=== PATIENT | female | born 1990 | race Caucasian/White ===

== ENCOUNTER 2017-05-26 15:20 | Emergency (ER) | payer SELFPAY ==
[2017-05-26 15:51] VITALS: BP 145/97
--- NOTE | 2017-05-26 16:10 | ED Physician Documentation ---
History of Present Illness - Stated complaint Stated Complaint: MED REFILL - Chief complaint Chief Complaint: General - History obtained from History obtained from: Patient - History of Present Illness Timing: Today Pain level max: 0 Pain level now: 0 Improved by: nothing Worsened by: nothing - Additonal information Additional information: recently moved here. out of her requip. no PCP yet. Review of Systems : denies: Now EGA Skin: denies: Rash Musculoskeletal: denies: Back pain PD PAST MEDICAL HISTORY - Past Medical History Past Medical History: Yes Other Past Medical History: restless leg syndrome - Present Medications Home Medications: Ambulatory Orders Medication Instructions Recorded Confirmed Ropinirole HCl [Requip] 2 mg PO QPM #30 tablet 05/26/17 Ropinirole HCl [Ropinirole ER] 2 mg PO DAILY 05/26/17 05/26/17 - Allergies Allergies/Adverse Reactions: Allergies Allergy/AdvReac Type Severity Reaction Status Date / Time No Known Drug Allergies Allergy Verified 05/26/17 15:51 - Living Situation Living Arrangement: reports: At home - Social History Does the pt have substance abuse?: No - Family History Family history: reports: Non contributory PD ED PE NORMAL - Vitals Vital signs reviewed: Yes - General General: Alert and oriented X 3, No acute distress - HEENT HEENT: Moist mucous membranes - Derm Derm: Warm and dry - Neuro Neuro: Alert and oriented X 3 - Psych Psych: Normal mood, Normal affect Results - Vitals Vitals: Vital Signs - 24 hr 05/26/17 15:47 Temperature 36.1 C L Heart Rate 97 Respiratory 18 Rate Blood Pressure 145/97 H O2 Saturation 100 Oxygen O2 Source Room air PD MEDICAL DECISION MAKING - ED course Complexity details: considered differential, d/w patient ED course: Patient is out of her Requip. Will prescribe this for her until she can see her doctor. Patient counseled regarding signs and symptoms for which I believe and urgent re-evaluation would be necessary. Patient with good understanding of and agreement to plan and is comfortable going home at this time This document was made in part using voice recognition software. While efforts are made to proofread this document, sound alike and grammatical errors may occur. Departure - Departure Disposition: 01 Home, Self Care Clinical Impression: Restless leg Condition: Good Follow-Up: your,doctor in 1 week [Other] Prescriptions: Ropinirole HCl [Requip] 2 mg PO QPM #30 tablet Comments: you will need to obtain further medications from your doctor. Discharge Date/Time: 05/26/17 16:15
== END 2017-05-26 16:15 | disposition home or self-care (01) ==
LOC: ED 15:20
DX: G25.81 Restless legs syndrome (principal); Z76.0 Encounter for issue of repeat prescription
CPT/HCPCS: 99283

== ENCOUNTER 2017-06-18 09:58 | Emergency (ER) | payer MEDICAID ==
--- NOTE | 2017-06-18 12:15 | ED Physician Documentation ---
PD HPI URI - Stated complaint Stated Complaint: FLU LIKE SYMPTOM - Chief complaint Chief Complaint: Resp - History obtained from History obtained from: Patient - History of Present Illness Timing - onset: How many weeks ago (3-4, with worsening the past few days) Timing duration: Weeks Timing details: Gradual onset, Still present (worse the past 2-3 days) Review of Systems Constitutional: reports: Chills, Myalgias Nose: reports: Rhinorrhea / runny nose, Congestion, Sinus pressure / pain Throat: reports: Sore throat Respiratory: denies: Dyspnea, Cough Neurologic: reports: Generalized weakness. denies: Focal weakness, Numbness, Altered mental status, Headache, Head injury PD PAST MEDICAL HISTORY - Past Medical History Past Medical History: Yes Respiratory: Asthma - Past Surgical History Past Surgical History: No - Present Medications Home Medications: Ambulatory Orders Medication Instructions Recorded Confirmed Ropinirole HCl [Requip] 2 mg PO QPM #30 tablet 05/26/17 Albuterol Sulfate [Proair Hfa 06/18/17 Inhaler] Azithromycin [Zithromax] 250 mg PO DAILY #6 tablet 06/18/17 Benzonatate [Tessalon] 100 mg PO TID PRN #25 capsule 06/18/17 Dexamethasone [Decadron] 4 mg PO DAILY #5 tablet 06/18/17 - Allergies Allergies/Adverse Reactions: Allergies Allergy/AdvReac Type Severity Reaction Status Date / Time No Known Drug Allergies Allergy Verified 05/26/17 15:51 - Social History Does the pt smoke?: No Smoking Status: Never smoker Does the pt drink ETOH?: No Does the pt have substance abuse?: No - Immunizations Immunizations are current?: Yes PD ED PE NORMAL - Vitals Vital signs reviewed: Yes - General General: Alert and oriented X 3, No acute distress, Well developed/nourished - HEENT HEENT: Ears normal, Pharynx benign, Other (sinus tenderness to percussion. ) - Neck Neck: Supple, no meningeal sign, No adenopathy - Cardiac Cardiac: RRR, No murmur - Respiratory Respiratory: Clear bilaterally - Abdomen Abdomen: Soft, Non tender - Female Female : Deferred - Rectal Rectal: Deferred - Back Back: No CVA TTP - Derm Derm: Normal color, Warm and dry, No rash - Extremities Extremities: No tenderness to palpate, Normal ROM s pain Results - Vitals Vitals: Oxygen O2 Source Room air PD MEDICAL DECISION MAKING - ED course Complexity details: considered differential (URI symptoms for awhile and now sinus pressure/cough and exudative discharge down throat and out nose. Cough and wheezing. Sounds like bacterial transformation. ), d/w patient Departure - Departure Disposition: 01 Home, Self Care Clinical Impression: Bronchitis Sinusitis, acute Qualifiers: Sinusitis location: unspecified location Recurrence: non-recurrent Qualified Code(s): J01.90 - Acute sinusitis, unspecified Asthma Qualifiers: Asthma severity: mild Asthma persistence: intermittent Asthma complication type : uncomplicated Qualified Code(s): J45.20 - Mild intermittent asthma, uncomplicated Condition: Stable Record reviewed to determine appropriate education?: Yes Instructions: ED Upper Resp Infec Abx Tx Prescriptions: Azithromycin [Zithromax] 250 mg PO DAILY #6 tablet Benzonatate [Tessalon] 100 mg PO TID PRN #25 capsule PRN Reason: Cough Dexamethasone [Decadron] 4 mg PO DAILY #5 tablet Comments: Drink lots of fluids. Tylenol or ibuprofen if needed for fevers and pains. Continue your asthma medicines as usual. Add Decadron for inflammation of the airways and sinuses. Zithromax antibiotic for sinus and bronchitis infections. Recheck if not improved within the next few days. Add Tessalon if needed for cough. Forms: Activity restrictions Discharge Date/Time: 06/18/17 12:46
[2017-06-18 12:46] VITALS: BP 150/112
== END 2017-06-18 12:46 | disposition home or self-care (01) ==
LOC: ED 09:58
DX: J45.20 Mild intermittent asthma, uncomplicated (principal); J40 Bronchitis, not specified as acute or chronic; J01.90 Acute sinusitis, unspecified
CPT/HCPCS: 99283

== ENCOUNTER 2017-09-17 11:51 | Emergency (ER) | payer MEDICAID ==
[2017-09-17 12:08] VITALS: BP 135/80
--- NOTE | 2017-09-17 12:25 | ED Physician Documentation ---
PD HPI URI - Stated complaint Stated Complaint: COUGH/SINUS PX - Chief complaint Chief Complaint: Heent - History obtained from History obtained from: Patient - History of Present Illness Timing - onset: Other (Otherwise healthy 26-year-old woman with no possibility of has been sick for 4 days with sore throat, runny nose, nasal congestion, left ear pressure, and dry cough. She had a mild fever but it is now gone. There is no associated shortness of breath. Mostly she needs a note that says she can return to work at [employer].) Review of Systems Constitutional: denies: Fever, Chills, Fatigue Nose: reports: Rhinorrhea / runny nose, Congestion, Sinus pressure / pain Throat: reports: Sore throat Respiratory: reports: Cough PD PAST MEDICAL HISTORY - Past Medical History Cardiovascular: Hypertension Respiratory: Asthma Neuro: None Endocrine/Autoimmune: None GI: None : None HEENT: None Psych: None Musculoskeletal: None Derm: None - Past Surgical History Past Surgical History: No - Present Medications Home Medications: Ambulatory Orders Medication Instructions Recorded Confirmed Ropinirole HCl [Requip] 2 mg PO QPM #30 tablet 05/26/17 Albuterol Sulfate [Proair Hfa 06/18/17 Inhaler] Azithromycin [Zithromax] 250 mg PO DAILY #6 tablet 06/18/17 Benzonatate [Tessalon] 100 mg PO TID PRN #25 capsule 06/18/17 Dexamethasone [Decadron] 4 mg PO DAILY #5 tablet 06/18/17 Guaifenesin/Pseudoephedrne HCl 1 each PO BID PRN #20 tab.er.12h 09/17/17 [Mucinex D ER 600-60 mg Tablet] Mometasone Furoate [Nasonex] 1 spray NS BID #1 spray.pump 09/17/17 - Allergies Allergies/Adverse Reactions: Allergies Allergy/AdvReac Type Severity Reaction Status Date / Time No Known Drug Allergies Allergy Verified 09/17/17 12:08 - Social History Does the pt smoke?: No Smoking Status: Never smoker Does the pt drink ETOH?: Yes Does the pt have substance abuse?: No - Immunizations Immunizations are current?: Yes - POLST Patient has POLST: No PD ED PE NORMAL - Vitals Vital signs reviewed: Yes - General General: Alert and oriented X 3, No acute distress - HEENT HEENT: Other (Mildly tender maxillary sinuses, TMs are normal. Throat is slightly red with some tonsillar crypts but no exudate.) - Neck Neck: Supple, no meningeal sign, No bony TTP, No adenopathy - Respiratory Respiratory: No respiratory distress, Clear bilaterally - Abdomen Abdomen: Non tender - Derm Derm: No rash - Neuro Neuro: Alert and oriented X 3, Normal speech Results - Vitals Vitals: Vital Signs - 24 hr 09/17/17 11:55 Temperature 36.7 C Heart Rate 93 Respiratory 20 Rate Blood Pressure 135/80 H O2 Saturation 100 Oxygen O2 Source Room air Departure - Departure Disposition: Home, Self Care Clinical Impression: Viral URI Condition: Good Record reviewed to determine appropriate education?: Yes Instructions: ED Viral Syndrome Prescriptions: Guaifenesin/Pseudoephedrne HCl [Mucinex D ER 600-60 mg Tablet] 1 each PO BID PRN #20 tab.er.12h PRN Reason: congestion Mometasone Furoate [Nasonex] 1 spray NS BID #1 spray.pump Comments: Return if worse or if you run a fever, Or follow-up or return if you are sick for more than 2 weeks total were develop a "double sickening" as discussed. Your blood pressure was elevated today on check into the emergency department. This does not mean that you have hypertension, it is a common phenomenon to come to the emergency department and have elevated blood pressure. I recommend that you see your primary care physician within the week to have it rechecked when you are feeling better. Forms: Activity restrictions
== END 2017-09-17 12:28 | disposition home or self-care (01) ==
LOC: ED 11:51
DX: J06.9 Acute upper respiratory infection, unspecified (principal); J45.909 Unspecified asthma, uncomplicated; I10 Essential (primary) hypertension
CPT/HCPCS: 99283

== ENCOUNTER 2018-02-10 13:34 | Emergency (ER) | payer MEDICAID ==
--- NOTE | 2018-02-10 14:03 | ED Physician Documentation ---
PD HPI HEENT - Stated complaint Stated Complaint: TOOTH PX - Chief complaint Chief Complaint: Heent - History obtained from History obtained from: Patient - History of Present Illness Timing - onset: Yesterday Timing - duration: Days (1) Timing - details: Abrupt onset, Still present Location: Tooth (rigth upper molar. Tried to get to see dentist, but earliest appt was Friday.) Improves: Ice. No: Medication Worsens: Swalllowing Associated symptoms: No: Fever, Congestion, Swollen nodes, Facial swelling, Headache Recently seen: Not recently seen Review of Systems Constitutional: denies: Fever, Chills, Myalgias Nose: denies: Rhinorrhea / runny nose, Congestion Throat: denies: Sore throat PD PAST MEDICAL HISTORY - Past Medical History Cardiovascular: Hypertension Respiratory: Asthma Endocrine/Autoimmune: None GI: None : None HEENT: None Psych: None Musculoskeletal: None Derm: None - Past Surgical History Past Surgical History: No - Present Medications Home Medications: Ambulatory Orders Medication Instructions Recorded Confirmed Ropinirole HCl [Requip] 2 mg PO QPM #30 tablet 05/26/17 Albuterol Sulfate [Proair Hfa 06/18/17 Inhaler] Clindamycin HCl [Cleocin HCl] 300 mg PO TID #15 capsule 02/10/18 HYDROcod/ACETAM 5/325 [[place] 5/325] 1 tab PO Q6H PRN #12 tablet 02/10/18 Losartan [Cozaar] 50 mg PO DAILY 02/10/18 02/10/18 Naproxen 375 mg PO BID #20 tablet 02/10/18 - Allergies Allergies/Adverse Reactions: Allergies Allergy/AdvReac Type Severity Reaction Status Date / Time No Known Drug Allergies Allergy Verified 02/10/18 13:40 - Social History Does the pt smoke?: No Smoking Status: Never smoker Does the pt drink ETOH?: Yes Does the pt have substance abuse?: No - Immunizations Immunizations are current?: Yes - POLST Patient has POLST: No PD ED PE NORMAL - Vitals Vital signs reviewed: Yes - General General: Alert and oriented X 3, No acute distress, Well developed/nourished - HEENT HEENT: Pharynx benign. No: Dentition benign (tenderness with some swelling of buccal gingiva right upper 3rd molar. ) - Neck Neck: Supple, no meningeal sign, No adenopathy - Cardiac Cardiac: RRR, No murmur - Respiratory Respiratory: Clear bilaterally - Derm Derm: Normal color, Warm and dry, No rash Results - Vitals Vitals: Oxygen O2 Source Room air PD MEDICAL DECISION MAKING - ED course Complexity details: considered differential, d/w patient - Sepsis Event Vital Signs: Oxygen O2 Source Room air Departure - Departure Disposition: Home, Self Care Clinical Impression: Dental infection Condition: Stable Record reviewed to determine appropriate education?: Yes Instructions: ED Abscess Dental Follow-Up: Royer Dupont PA-C [Primary Care Provider] - Prescriptions: Clindamycin HCl [Cleocin HCl] 300 mg PO TID #15 capsule HYDROcod/ACETAM 5/325 [[place] 5/325] 1 tab PO Q6H PRN #12 tablet PRN Reason: Pain Naproxen 375 mg PO BID #20 tablet Comments: Rinse with antiseptic mouthwash a few times a day. Clindamycin antibiotic as directed and naproxen anti-inflammatory. Add Tylenol or hydrocodone if needed for pain. Follow-up with your dentist Friday as planned. Discharge Date/Time: 02/10/18 14:33
[2018-02-10] MEDS ORDERED: CLINDAMYCIN 150 MG CAPSULE PO STA (14:19)
[2018-02-10] MEDS ORDERED: NAPROXEN 250 MG TABLET PO STA (14:19)
[2018-02-10 14:42] VITALS: BP 144/100
== END 2018-02-10 14:33 | disposition home or self-care (01) ==
LOC: ED 13:34
DX: K04.7 Periapical abscess without sinus (principal); I10 Essential (primary) hypertension
CPT/HCPCS: 99283; A9270

== ENCOUNTER 2018-04-14 19:56 | Outpatient (CLI) | payer MEDICAID | END 2018-04-14 19:57 | disposition critical access hospital (66) | LOC: EMS 19:56 | PROVIDERS: ATTEND Surgery | DX: R21 Rash and other nonspecific skin eruption (principal) | CPT/HCPCS: A0425; A0427; A0999 ==

== ENCOUNTER 2018-04-14 20:03 | Emergency (ER) | payer MEDICAID ==
[2018-04-14] MEDS ORDERED: DEXAMETHASONE 10 MG/ML VIAL IVP STA (20:19)
--- NOTE | 2018-04-14 20:23 | ED Physician Documentation ---
History of Present Illness - Stated complaint Stated Complaint: RASH, POSS ALLERGIC RXN - Chief complaint Chief Complaint: Wound - History obtained from History obtained from: Patient - History of Present Illness Timing: Enter time (19:00), Today Pain level now: 0 Improved by: improved en route after medics administered IV benadryl - Additonal information Additional information: Patient presents by ambulance with complaint of generalized pruritic rash, sudden onset 7 PM tonight while eating. No apparent inciting event or factors. She has had allergic reactions in the past, but to bees tings. She usually has an EpiPen but did not have it available tonight. In addition to the rash, she also experienced mild dyspnea, and sensation of throat swelling. The rash has improved with IV Benadryl given by medics, and the dyspnea and throat swelling have resolved. Review of Systems Cardiac: denies: Chest pain / pressure Respiratory: reports: Dyspnea. denies: Cough, Wheezing Skin: reports: Rash PD PAST MEDICAL HISTORY - Past Medical History Cardiovascular: Hypertension Respiratory: Asthma Endocrine/Autoimmune: None GI: None : None HEENT: None Psych: None Musculoskeletal: None Derm: None - Past Surgical History Past Surgical History: No - Present Medications Home Medications: Ambulatory Orders Medication Instructions Recorded Confirmed Ropinirole HCl [Requip] 2 mg PO QPM #30 tablet 05/26/17 Albuterol Sulfate [Proair Hfa 06/18/17 Inhaler] Clindamycin HCl [Cleocin HCl] 300 mg PO TID #15 capsule 02/10/18 HYDROcod/ACETAM 5/325 [[place] 5/325] 1 tab PO Q6H PRN #12 tablet 02/10/18 Losartan [Cozaar] 50 mg PO DAILY 02/10/18 02/10/18 Naproxen 375 mg PO BID #20 tablet 02/10/18 - Allergies Allergies/Adverse Reactions: Allergies Allergy/AdvReac Type Severity Reaction Status Date / Time No Known Drug Allergies Allergy Verified 02/10/18 13:40 - Social History Does the pt smoke?: No Smoking Status: Never smoker Does the pt drink ETOH?: Yes Does the pt have substance abuse?: No - Immunizations Immunizations are current?: Yes - POLST Patient has POLST: No PD ED PE NORMAL - Vitals Vital signs reviewed: Yes - General General: Alert and oriented X 3, No acute distress, Well developed/nourished - HEENT HEENT: Moist mucous membranes, Other (no intraoral swelling, no lip or facial swelling) - Respiratory Respiratory: No respiratory distress, Clear bilaterally PD ED PE EXPANDED - Derm Derm: Other (mild patchy facial erythema without sharp margins) Results - Vitals Vitals: Vital Signs - 24 hr 04/14/18 04/14/18 04/14/18 20:04 21:43 21:52 Temperature 36.5 C Heart Rate 99 84 84 Respiratory 18 18 16 Rate Blood Pressure 128/110 H 113/78 132/82 H O2 Saturation 99 98 98 Oxygen O2 Source Room air PD MEDICAL DECISION MAKING - ED course Complexity details: considered differential, d/w patient Departure - Departure Disposition: 01 Home, Self Care Clinical Impression: Allergic reaction Condition: Good Instructions: ED Allergic Reaction General Other Discharge Date/Time: 04/14/18 21:53
[2018-04-14 21:53] VITALS: BP 132/82
== END 2018-04-14 21:53 | disposition home or self-care (01) ==
LOC: EDUNIT# → ED 20:03
DX: T78.40XA Allergy, unspecified, initial encounter (principal); X58.XXXA Exposure to other specified factors, initial encounter; I10 Essential (primary) hypertension
CPT/HCPCS: 96374; 99283

== ENCOUNTER 2018-05-06 15:16 | Outpatient (CLI) | payer MEDICAID | END 2018-05-06 23:59 | disposition home or self-care (01) | LOC: LAB.N 15:16 | PROVIDERS: ATTEND Physician Assistant Medical | DX: Z91.89 Other specified personal risk factors, not elsewhere classified (principal) | CPT/HCPCS: 36415; 86803; 87389 ==

== ENCOUNTER 2018-05-21 08:04 | Emergency (ER) | payer MEDICAID ==
[2018-05-21] MEDS ORDERED: ONDANSETRON 4 MG/2 ML VIAL IVP STA (09:09)
[2018-05-21] MEDS ORDERED: SODIUM CHLORIDE 0.9% 1,000 ML IV ONE (09:09)
[2018-05-21] MEDS ORDERED: MORPHINE 2 MG/ML CARPUJECT IVP STA (09:09)
--- NOTE | 2018-05-21 09:11 | ED Physician Documentation ---
History of Present Illness - Stated complaint Stated Complaint: SIDE PX - Chief complaint Chief Complaint: Abd Pain - Additonal information Additional information: h from pt 27 y/o f awoke approx 3 AM with vague suprapubic and periumbilical pain which has migrated to the RLQ + NVD s blood no dysuria vag bleed or vag dc no prior surgeries no bad food travel etc Review of Systems Constitutional: denies: Fever, Chills Cardiac: denies: Chest pain / pressure Respiratory: denies: Dyspnea GI: reports: Abdominal Pain, Nausea, Vomiting, Diarrhea : denies: Dysuria, Discharge, Vaginal bleeding Musculoskeletal: denies: Back pain PD PAST MEDICAL HISTORY - Past Medical History Cardiovascular: Hypertension Respiratory: Asthma Endocrine/Autoimmune: None GI: None : None HEENT: None Psych: None Musculoskeletal: None Derm: None - Past Surgical History Past Surgical History: No - Present Medications Home Medications: Ambulatory Orders Medication Instructions Recorded Confirmed Ropinirole HCl [Requip] 2 mg PO QPM #30 tablet 05/26/17 Albuterol Sulfate [Proair Hfa 06/18/17 Inhaler] Clindamycin HCl [Cleocin HCl] 300 mg PO TID #15 capsule 02/10/18 HYDROcod/ACETAM 5/325 [[place] 5/325] 1 tab PO Q6H PRN #12 tablet 02/10/18 Losartan [Cozaar] 50 mg PO DAILY 02/10/18 02/10/18 Naproxen 375 mg PO BID #20 tablet 02/10/18 Indomethacin [Indocin] 25 mg PO BIDWM PRN #20 capsule 05/21/18 Ondansetron Odt [Zofran] 4 mg TL Q6H PRN #10 tablet 05/21/18 - Allergies Allergies/Adverse Reactions: Allergies Allergy/AdvReac Type Severity Reaction Status Date / Time No Known Drug Allergies Allergy Verified 05/21/18 08:15 - Social History Does the pt smoke?: No Smoking Status: Never smoker Does the pt drink ETOH?: Yes Does the pt have substance abuse?: No - Immunizations Immunizations are current?: Yes - POLST Patient has POLST: No PD ED PE NORMAL - Vitals Vital signs reviewed: Yes - General General: Alert and oriented X 3 - Neck Neck: Supple, no meningeal sign - Cardiac Cardiac: RRR - Respiratory Respiratory: No respiratory distress, Clear bilaterally - Abdomen Abdomen: Soft, Non tender, Other (TTP RLQ with rebound) - Back Back: No CVA TTP - Derm Derm: Normal color - Neuro Neuro: Alert and oriented X 3 Results - Vitals Vitals: Vital Signs - 24 hr 05/21/18 08:12 Temperature 35.5 C L Heart Rate 83 Respiratory 16 Rate Blood Pressure 125/80 O2 Saturation 98 Oxygen O2 Source Room air - Labs Labs: Laboratory Tests 05/21/18 05/21/18 05/21/18 08:30 09:25 09:25 WBC 7.5 RBC 4.18 L Hgb 12.5 Hct 36.5 L MCV 87.4 MCH 30.0 MCHC 34.4 RDW 13.5 Plt Count 258 MPV 7.7 L Neut # (Auto) 5.2 Lymph # (Auto) 1.9 [place] # (Auto) 0.3 Eos # (Auto) 0.0 Baso # (Auto) 0.1 Absolute Nucleated RBC 0.00 Nucleated RBC % 0.0 Sodium 133 L Potassium 3.9 Chloride 102 Carbon Dioxide 24 Anion Gap 7.0 BUN 8 Creatinine 0.5 Estimated GFR (MDRD) 147 Glucose 95 Calcium 8.9 Total Bilirubin 0.3 AST 12 ALT 14 Alkaline Phosphatase 51 Total Protein 7.5 Albumin 3.8 Globulin 3.7 Albumin/Globulin Ratio 1.0 Lipase 21 L Urine Color YELLOW Urine Clarity CLEAR Urine pH 5.5 Ur Specific [place] >=1.030 H Urine Protein NEGATIVE Urine Glucose (UA) NEGATIVE Urine Ketones NEGATIVE Urine Occult Blood NEGATIVE Urine Nitrite NEGATIVE Urine Bilirubin NEGATIVE Urine Urobilinogen 0.2 (NORMAL) Ur Leukocyte Esterase NEGATIVE Ur Microscopic Review NOT INDICATED Urine Culture Comments NOT INDICATED Urine HCG, Qual NEGATIVE - Rads (name of study) CTAP Radiology: See rad report (no appendicitis but 3 cm phlegmon with stranding) PD MEDICAL DECISION MAKING - ED course ED course: no appy but phelgmon and stranding - will consult surgery d/w surgeon Dr Garcia 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 But you do have a 3 cm area of inflammation in the mesentery (the protective curtain of fat that protects your organs) This was discussed with our on air host surgeon and he advises you do not need surgery or antibiotics. Just close for serial exams and a repeat CT in a few weeks - please call the surgery office to schedule. Return to the ER if worse in the mean time - any fever, worsening pain, feeling faint etc Forms: Activity restrictions
[2018-05-21] MEDS ORDERED: IOVERSOL 320 100 ML VIAL IVP ONE ×3 (09:27→10:30)
[2018-05-21 09:51] LABS: BASOPHILS # (AUTO) 0.1 10^3/uL (0.0-0.1); BASOPHILS % (AUTO) 0.7 %; EOSINOPHILS % (AUTO) 0.5 %; HGB - HEMOGLOBIN 12.5 g/dL (12.0-16.0); LYMPHOCYTES # (AUTO) 1.9 10^3/uL (1.5-3.5); LYMPHOCYTES % (AUTO) 24.9 %; MEAN CORPUSCULAR HGB CONC 34.4 g/dL (32.0-36.0); MEAN CORPUSCULAR VOLUME 87.4 fL (81.0-99.0); MEAN PLATELET VOLUME 7.7 fL (7.9-10.8); MONOCYTES # (AUTO) 0.3 10^3/uL (0.0-1.0); MONOCYTES % (AUTO) 4.5 %; NEUTROPHILS # (AUTO) 5.2 10^3/uL (1.5-6.6); NEUTROPHILS % (AUTO) 69.4 %; PLT - PLATELET COUNT 258 10^3/uL (130-450); RED BLOOD COUNT 4.18 10^6/uL (4.20-5.40); RED CELL DISTRIBUTION WIDTH 13.5 % (12.0-15.0); WHITE BLOOD COUNT 7.5 x10^3/uL (4.8-10.8)
[2018-05-21 09:53] LABS: BILIRUBIN,URINE NEGATIVE (NEGATIVE); GLUCOSE, URINE (UA) NEGATIVE (NEGATIVE); KETONES,URINE (UA) NEGATIVE (NEGATIVE); LEUKOCYTE ESTERASE, URINE NEGATIVE (NEGATIVE); NITRITE,URINE NEGATIVE (NEGATIVE); OCCULT BLOOD,URINE NEGATIVE (NEGATIVE); PH,URINE 5.5 PH (5.0-7.5); PROTEIN,URINE NEGATIVE (NEGATIVE); UROBILINOGEN,URINE 0.2 (NORMAL) E.U./dL (NORMAL)
[2018-05-21 09:57] LABS: CLARITY,URINE CLEAR (CLEAR); HCG UR QUAL NEGATIVE
[2018-05-21 10:01] LABS: ALBUMIN 3.8 g/dL (3.2-5.5); BILIRUBIN,TOTAL 0.3 mg/dL (0.2-1.0); CALCIUM 8.9 mg/dL (8.5-10.3); CREATININE 0.5 mg/dL (0.4-1.0); TOTAL PROTEIN 7.5 g/dL (6.7-8.2)
--- NOTE | 2018-05-21 11:04 | CT Report ---
Reason: rlq pain concern appy Procedure Date: 05/21/2018 Accession Number: [id number] / [id number] Procedure: CT - Abdomen/Pelvis W/ CPT Code: FULL RESULT: EXAM: CT ABDOMEN AND PELVIS EXAM DATE: 05/21/2018 10:29 AM. CLINICAL HISTORY: Right lower quadrant pain, concern for appendicitis. COMPARISONS: None. TECHNIQUE: Routine helical CT imaging was performed through the abdomen and pelvis. IV contrast: OPTI 320 90 mL. Enteric contrast: No. Reconstructions: Coronal and sagittal. In accordance with CT protocol optimization, one or more of the following dose reduction techniques were utilized for this exam: automated exposure control, adjustment of mA and/or KV based on patient size, or use of iterative reconstructive technique. FINDINGS: Lung Bases: Unremarkable. Liver: Normal. No masses. Gallbladder/Bile Ducts: Unremarkable. Spleen: Normal. Pancreas: Normal. Adrenal Glands: Normal. Kidneys: Normal. No masses or hydronephrosis. Peritoneal Cavity/Bowel: There is focal fat stranding of the mesenteric root distally surrounding a masslike phlegmonous-appearing focus which measures 3.3 x 1.5 cm coronally on image 31 series 5, also seen on image 62 series 3 and image 41 series 6. There is diverticulosis without diverticulitis. No free fluid, free air or adenopathy. No masses. The appendix is well visualized and normal. Pelvic Organs: Normal. The bladder and visualized pelvic organs are within normal limits. Vasculature: No aneurysms or other significant abnormality. Bones: No significant abnormality. Other: None. IMPRESSION: No appendicitis. Nonspecific focal fat stranding surrounding 3.3 cm soft tissue density, possibly phlegmonous changes. The clinical significance is unclear. Would recommend one time follow-up imaging in 3 months following resolution of the acute episode to document absence of desmoplasia and any underlying etiology. [facility]
[2018-05-21 12:52] VITALS: BP 129/77
== END 2018-05-21 12:57 | disposition home or self-care (01) ==
LOC: ED 08:04
DX: L02.91 Cutaneous abscess, unspecified (principal); I10 Essential (primary) hypertension
CPT/HCPCS: 36415; 74177; 80053; 81003; 81025; 83690; 85025; 96361; 96374; 96375; 99283; 99284; Q9967; 81001; 87086

== ENCOUNTER 2020-03-17 08:43 | Emergency (ER) | payer MEDICAID ==
[2020-03-17 09:20] VITALS: BP 136/89
--- NOTE | 2020-03-17 09:36 | ED Physician Documentation ---
History of Present Illness - Stated complaint Stated Complaint: MED REFILL - Chief complaint Chief Complaint: General - History obtained from History obtained from: Patient - History of Present Illness Timing: Chronic, Other (For medication refill for her restless legs. She is new to the area tried to make an appointment with a local clinic and has an appointment for April. No other mechanism for refill at this time.) Review of Systems Constitutional: denies: Fever Nose: denies: Rhinorrhea / runny nose, Congestion Throat: denies: Sore throat Respiratory: denies: Cough GI: denies: Abdominal Pain, Vomiting, Diarrhea PD PAST MEDICAL HISTORY - Past Medical History Cardiovascular: Hypertension Respiratory: Asthma Neuro: Other (restless legs. ) Endocrine/Autoimmune: None GI: None : None HEENT: None Psych: None Musculoskeletal: None Derm: None - Past Surgical History Past Surgical History: No - Present Medications Home Medications: Ambulatory Orders Medication Instructions Recorded Confirmed Ropinirole HCl [Requip] 2 mg PO QPM #30 tablet 05/26/17 Albuterol Sulfate [Proair Hfa 06/18/17 Inhaler] Ropinirole HCl 2 mg PO QPM #45 tablet 03/17/20 SUMAtriptan succinate [Sumatriptan 25 mg PO 03/17/20 Succinate] - Allergies Allergies/Adverse Reactions: Allergies Allergy/AdvReac Type Severity Reaction Status Date / Time aspirin Allergy Unknown Verified 03/17/20 09:24 - Social History Does the pt smoke?: No Smoking Status: Never smoker Does the pt drink ETOH?: Yes Does the pt have substance abuse?: No - Immunizations Immunizations are current?: Yes - POLST Patient has POLST: No PD ED PE NORMAL - Vitals Vital signs reviewed: Yes - General General: Alert and oriented X 3, No acute distress, Well developed/nourished - Derm Derm: Normal color, Warm and dry - Neuro Neuro: Alert and oriented X 3, No motor deficit, Normal speech Results - Vitals Vitals: Vital Signs - 24 hr 03/17/20 09:13 Temperature 36.4 C L Heart Rate 77 Respiratory 16 Rate Blood Pressure 136/89 H O2 Saturation 98 Oxygen O2 Source Room air PD MEDICAL DECISION MAKING - ED course Complexity details: considered differential, d/w patient Departure - Departure Disposition: 01 Home, Self Care Clinical Impression: No mechanism for timely refill of medication, Restless leg Condition: Stable Record reviewed to determine appropriate education?: Yes Prescriptions: Ropinirole HCl 2 mg PO QPM #45 tablet Comments: Continue your ropinirole nightly for your restless legs. Stay well-hydrated. Follow-up with the clinic in April as scheduled. Return as needed. Discharge Date/Time: 03/17/20 09:50
== END 2020-03-17 09:50 | disposition home or self-care (01) ==
LOC: ED 08:43
DX: G25.81 Restless legs syndrome (principal); Z76.0 Encounter for issue of repeat prescription; I10 Essential (primary) hypertension
CPT/HCPCS: 99281

== ENCOUNTER 2020-06-04 09:06 | Emergency (ER) | payer MEDICAID ==
--- NOTE | 2020-06-04 10:51 | ED Physician Documentation ---
History of Present Illness - Stated complaint Stated Complaint: SORE THROAT - Chief complaint Chief Complaint: General - History obtained from History obtained from: Patient - Additonal information Additional information: 29yF, previously healthy, p/w URI sx of cough productive of clear sputum, myalgias, nasal congestion, sore throat X 2-3 days. Patient states she came in because she took off from work today and they asked for a work note for her to return. No recent travel but + sick contacts. Patient's roommates daughter had bronchiolitis this past week. She also has a coworker with rhinovirus. Denies fevers, chest pain, shortness of breath, nausea or other symptoms. Review of Systems Constitutional: reports: Myalgias. denies: Fever, Chills Cardiac: denies: Chest pain / pressure Respiratory: reports: Cough. denies: Dyspnea PD PAST MEDICAL HISTORY - Past Medical History Past Medical History: Yes Cardiovascular: Hypertension Respiratory: Asthma Neuro: Migraines, Other Endocrine/Autoimmune: None GI: None PE [employer]: None : None HEENT: None Psych: Bipolar disorder Musculoskeletal: None Derm: Psoriasis - Past Surgical History Past Surgical History: No - Present Medications Home Medications: Ambulatory Orders Medication Instructions Recorded Confirmed Ropinirole HCl [Requip] 2 mg PO QPM #30 tablet 05/26/17 06/04/20 Albuterol Sulfate [Proair Hfa 1 - 2 puffs IN Q4HR PRN 06/18/17 Inhaler] SUMAtriptan succinate [Sumatriptan 25 mg PO DAILY PRN 03/17/20 06/04/20 Succinate] Losartan Potassium 25 mg PO DAILY 06/04/20 06/04/20 - Allergies Allergies/Adverse Reactions: Allergies Allergy/AdvReac Type Severity Reaction Status Date / Time aspirin Allergy Unknown Verified 06/04/20 09:08 - Social History Does the pt smoke?: No Smoking Status: Never smoker Does the pt drink ETOH?: No Does the pt have substance abuse?: No - Immunizations Immunizations are current?: Yes - POLST Patient has POLST: No PD ED PE NORMAL - Vitals Vital signs reviewed: Yes - General General: Alert and oriented X 3 - HEENT HEENT: Atraumatic, PERRL, EOMI, Moist mucous membranes, Other (Mild oropharyngeal erythema. no exudates) - Neck Neck: Supple, no meningeal sign - Cardiac Cardiac: RRR - Respiratory Respiratory: No respiratory distress, Clear bilaterally - Neuro Neuro: Alert and oriented X 3 - Psych Psych: Normal mood, Normal affect Results - Vitals Vitals: Vital Signs - 24 hr 06/04/20 06/04/20 09:08 09:24 Temperature 36.7 C 36.9 C Heart Rate 72 70 Respiratory 18 18 Rate Blood Pressure 148/83 H 148/96 H O2 Saturation 100 100 Oxygen O2 Source Room air PD MEDICAL DECISION MAKING - ED course ED course: 29-year-old woman presents with uncomplicated upper respiratory infection and request for work note. We will send Covid swab. Extensive education given about risk factors for spread. Strict return precautions given. She will follow-up for her Covid test result before returning to work. Departure - Departure Disposition: Home, Self Care Clinical Impression: URI (upper respiratory infection), Cough, Myalgia, Nasal congestion Condition: Good Instructions: ED URI Viral Comments: You were seen in the emergency department for an upper respiratory infection. The Covid test was sent and will be available in the next 2 to 3 days. If it is positive we will call you. Otherwise, you should check through the patient health portal on our [employer] website to obtain your results. Return to the ED for any new or worsening symptoms or other concerns. Follow-up with your primary doctor. Forms: Activity restrictions
[2020-06-04 10:59] VITALS: BP 132/85
== END 2020-06-04 11:19 | disposition home or self-care (01) ==
LOC: ED 09:06
DX: J06.9 Acute upper respiratory infection, unspecified (principal); I10 Essential (primary) hypertension; Z20.822 Contact with and (suspected) exposure to COVID-19
CPT/HCPCS: 99282; 99283